=== PATIENT | female | born 1995 | race Caucasian/White ===

== ENCOUNTER → 2019-08-11 | Outpatient (REF) | payer OTHER | LOC: M SFHCLERA 18:19 | PROVIDERS: ATTEND Physician Assistant | DX: J02.9 Acute pharyngitis, unspecified (principal) ==

== ENCOUNTER → 2020-12-05 | Outpatient (CLI) | payer BC ==
[2020-12-05 17:16] LABS: HEMOGLOBIN 13.2 g/dl (12.0-15.5); MEAN CORPUSCULAR HEMOGLOBIN 28.6 pg (27.0-33.0); MEAN CORPUSCULAR HGB CONC 32.2 g/dl (32.0-36.5); MEAN CORPUSCULAR VOLUME 88.7 fl (80.0-96.0); PLATELET COUNT, AUTOMATED 371 10^3/uL (150-450); RED BLOOD COUNT 4.62 10^6/uL (4.00-5.40); WHITE BLOOD COUNT 8.5 10^3/uL (4.0-10.0)
[2020-12-05 17:48] LABS: ALBUMIN 3.7 GM/DL (3.2-5.2); ALT/SGPT 35 U/L (12-78); BILIRUBIN,TOTAL 0.1 MG/DL (0.2-1.0); BLOOD UREA NITROGEN 10 MG/DL (7-18); CARBON DIOXIDE LEVEL 26 MEQ/L (21-32); CHLORIDE LEVEL 105 MEQ/L (98-107); CREATININE FOR GFR 0.54 MG/DL (0.55-1.30); FERRITIN 35 NG/ML (8-252); GLOMERULAR FILTRATION RATE > 60.0 (>60); GLUCOSE, FASTING 90 MG/DL (70-100); IRON (FE) 33 UG/DL (50-170); PERCENT SATURATION 8.6 % (13.2-45.0); SODIUM LEVEL 140 MEQ/L (136-145); TOTAL IRON BINDING CAPACITY 383 UG/DL (250-450); TOTAL PROTEIN 7.4 GM/DL (6.4-8.2)
[2020-12-05 17:50] LABS: VITAMIN B12 LEVEL 285 PG/ML (247-911)
[2020-12-05 18:18] LABS: HEMOGLOBIN A1c 5.2 %
== END ==
LOC: M PLALAB 15:42
PROVIDERS: ATTEND Nurse Practitioner Adult Health
DX: Z00.00 Encounter for general adult medical examination without abnormal findings (principal)

== ENCOUNTER → 2021-03-22 | Outpatient (CLI) | payer BC ==
--- NOTE | 2021-03-22 08:23 | REP ---
INDICATION: PERIUMBILICAL PAIN COMPARISON: None. TECHNIQUE: Real time giordano scale ultrasound examination using curved array transducer. FINDINGS: Liver and pancreas are normal in contour, size, and echogenicity without focal hepatic or pancreatic lesions identified. The gallbladder is normal and without gallstones, wall thickening, or pericholecystic fluid. No biliary ductal dilatation is appreciated and the common bile duct measures 2.0 mm diameter. Right kidney is normal in reniform shape without hydronephrosis and measures 12.1 x 3.8 x 5.2 cm. No ascites in the visualized right upper quadrant. IMPRESSION: Normal limited right upper quadrant ultrasound <Electronically signed by Artie Londono > 03/22/21 [id number]
== END ==
LOC: M WHC 07:00
PROVIDERS: ATTEND Nurse Practitioner Adult Health
DX: R10.815 Periumbilic abdominal tenderness (principal)

== ENCOUNTER → 2021-07-26 | Outpatient (CLI) | payer BC | LOC: M RAD 08:37 | PROVIDERS: ATTEND Nurse Practitioner Adult Health | DX: R19.4 Change in bowel habit (principal) | CPT/HCPCS: 78227; A9537 ==

== ENCOUNTER → 2024-07-07 | Outpatient (REF) | payer OTHER | LOC: M SFHCPLAZ 09:44 | PROVIDERS: ATTEND Nurse Practitioner Adult Health | DX: Z53.9 Procedure and treatment not carried out, unspecified reason (principal) ==

== ENCOUNTER → 2024-07-07 | Outpatient (CLI) | payer OTHER ==
[2024-07-07 13:36] LABS: HEMATOCRIT 42.8 % (36.0-47.0); MEAN CORPUSCULAR HEMOGLOBIN 29.8 pg (27.0-33.0); MEAN CORPUSCULAR HGB CONC 32.7 g/dl (32.0-36.5); MEAN CORPUSCULAR VOLUME 91.1 fl (80.0-96.0); PLATELET COUNT, AUTOMATED 409 10^3/uL (150-450); WHITE BLOOD COUNT 6.5 10^3/uL (4.0-10.0)
[2024-07-07 14:08] LABS: ALBUMIN 3.8 G/DL (3.2-5.2); ALKALINE PHOSPHATASE 84 U/L (35-104); ALT/SGPT 36 U/L (7.0-40); AST/SGOT 20 U/L (<34); BILIRUBIN,TOTAL 0.6 MG/DL (0.3-1.2); BLOOD UREA NITROGEN 9 MG/DL (9-23); CALCIUM LEVEL 9.1 MG/DL (8.5-10.1); CARBON DIOXIDE LEVEL 26 MMOL/L (20-31); CHLORIDE LEVEL 105 MMOL/L (98-107); CREATININE FOR GFR 0.55 MG/DL (0.55-1.30); GLOMERULAR FILTRATION RATE > 60.0 (>60); GLUCOSE, FASTING 79 MG/DL (60-100); IRON (FE) 109 UG/DL (50-170); PERCENT SATURATION 29.9 % (13.2-45.0); POTASSIUM SERUM 4.4 MMOL/L (3.5-5.1); SODIUM LEVEL 142 MMOL/L (136-145); TOTAL IRON BINDING CAPACITY 365 UG/DL (250-425); TOTAL PROTEIN 7.4 G/DL (5.7-8.2)
[2024-07-07 14:09] LABS: FERRITIN 45.2 NG/ML (7.3-270.7)
[2024-07-07 14:10] LABS: THYROID STIMULATING HORMONE 0.706 uIU/ML (0.55-4.78)
== END ==
LOC: M PLALAB 10:17
PROVIDERS: ATTEND Nurse Practitioner Adult Health
DX: N92.6 Irregular menstruation, unspecified (principal); Z83.3 Family history of diabetes mellitus